=== PATIENT | female | born 1975 | race Hispanic/Latino ===

== ENCOUNTER 2019-10-05 17:40 | Inpatient (IN) | payer SELFPAY ==
--- OUTSIDE RECORDS SUMMARY | 2019-10-05 17:43 | XMS REPORT ---
:1975 Author Organization [facility] Address [address] [place] [address] [address] [place] [address] Care Team Providers Name Role Phone Unavailable Unavailable Unavailable Problems This patient has no known problems. Allergies, Adverse Reactions, Alerts This patient has no known allergies or adverse reactions. Medications This patient has no known medications.
[2019-10-05] MEDS ORDERED: ONDANSETRON 4 MG/2 ML VIAL ONE ×2 (19:52→23:24)
[2019-10-05] MEDS ORDERED: MORPHINE 4 MG/ML SYR ONE ×2 (19:52→23:23)
[2019-10-05] MEDS ORDERED: NA CHLORIDE 0.9% 1,000 ML ONE (19:53)
[2019-10-05 19:58] LABS: Urine Blood NEGATIVE (NEG); Urine Glucose NEGATIVE (NEG); Urine Protein NEGATIVE (NEG); Urine Specific Gravity 1.015 (1.005-1.030); Urine pH 8.5 (5.0-7.0)
[2019-10-05 20:23] LABS: Albumin 3.1 g/dL (3.4-5.0); Bilirubin Direct 0.2 mg/dL (0-0.2); Bilirubin Total 0.6 mg/dL (0.2-1.0); Potassium 3.7 mmol/L (3.5-5.1); Protein, Total 7.3 g/dL (6.4-8.2)
[2019-10-05 20:40] LABS: Absolute Lymphocytes (CBC) 1.2 K/uL (0.7-4.9); Basophils % 0.6 % (0-1.3); Lymphocytes % 10.6 % (15.3-44.8); MPV 8.7 fL (7.6-11.3); RBC Red Blood Cell Count 3.33 M/uL (3.86-4.86)
[2019-10-05 20:42] LABS: Hematocrit 20.1 % (36.0-45.0)
[2019-10-05 21:02] LABS: Anisocytosis 1+; Blood Morphology Comment NOTED (NOT SEEN); Hypochromasia 3+; Platelet Estimate ADEQ; Platelets, Giant NOTED; Polychromasia 1+; Urine White Blood Cell Casts OK
--- NOTE | 2019-10-05 21:09 | RAD REPORT ---
EXAM DESCRIPTION: CT - Abdomen Pelvis W Contrast - 10/05/2019 8:56 pm CLINICAL HISTORY: lower abdominal pain COMPARISON: No comparisons TECHNIQUE: Biphasic, helical CT imaging of the abdomen and pelvis was performed following 100 ml non -ionic IV contrast. No oral contrast. All CT scans are performed using dose optimization technique as appropriate and may include automated exposure control or mA/KV adjustment according to patient size. FINDINGS: No suspicious findings in the lung bases. The liver, spleen, and pancreas show no suspicious findings. Gallstones are present. No wall thickeni ng or pericholecystic fluid. Active gallbladder process is doubtful. No biliary tree dilatation. Symmetric renal function is seen with no hydronephrosis or suspicious renal mass. No pyelonephritis o r acute parenchymal process. Mostly contracted urinary bladder shows no suspicious finding. No adrena l abnormalities. Uterine size is normal range for patient age. There is heterogeneity in the myometri um consistent with multiple small uterine fibroids. No discrete finding within the endometrial cavity . Small cysts are identified in both ovaries up to 18 mm in size. There is a mild congestion or stran ding appearance to the fatty tissues of the anterior lower pelvis. No fallopian tube dilatation. No dilated bowel loops or bowel wall thickening. Appendectomy clips are present at the tip of the cec um. Patient has minimal diverticulosis. No free air, free fluid or pneumatosis. No hernia, mass or b ulky lymphadenopathy. No suspicious bony findings. IMPRESSION: No bowel obstruction, free air or surgically emergent finding. Patient has a mild congested or edematous appearance to the fat of the lower pelvis. This is nonspeci fic. No associated GI or CORPORATE AIRCRAFT MECHANIC process. Small ovarian cysts are present. No fallopian tube dilatation. Uterus contains multiple fibroids but no acute CORPORATE AIRCRAFT MECHANIC process confirmed.
[2019-10-05 21:41] LABS: Protime INR 1.26
[2019-10-05] MEDS ORDERED: CIPROFLOXACIN 400mg IV 400 MG/200 ML BAG IV ONE (21:44)
--- NOTE | 2019-10-05 21:59 | ER ---
Nurse's Notes [facility] Name: Abida Shoemaker Age: 43 yrs Sex: Female : 1975 Arrival Date: 10/05/2019 Time: 17:44 Bed 13 Private MD: None, None Diagnosis: Anemia;Urinary Tract Infection;Abdominal Pain Presentation: 10/05 18:25 Presenting complaint: Patient states: "Since yesterday morning I have been having aj1 excruciating abdominal pain" Reports RLQ and LLQ abdominal pain. States that she gets dizzy in the shower. Reports nausea, vomiting, denies diarrhea. Reports fever of 101.4 todayu. Transition of care: patient was not received from another setting of care. Onset of symptoms was 2019. Risk Assessment: Do you want to hurt yourself or someone else? Patient reports no desire to harm self or others. Initial Sepsis Screen: Does the patient meet any 2 criteria? HR > 90 bpm. No. Patient's initial sepsis screen is negative. Does the patient have a suspected source of infection? Yes: Acute abdominal pain. Care prior to arrival: None. 18:25 Method Of Arrival: Ambulatory aj 18:25 Acuity: NEGRO 3 aj1 Triage Assessment: 18:26 General: Appears in no apparent distress. uncomfortable, Behavior is calm, cooperative, aj1 appropriate for age. Pain: Complains of pain in right lower quadrant and left lower quadrant. Neuro: Level of Consciousness is awake, alert, obeys commands. Cardiovascular: Patient's skin is warm and dry. Respiratory: Airway is patent Respiratory effort is even, unlabored, Respiratory pattern is regular, symmetrical. GI: Reports lower abdominal pain, nausea, vomiting. 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 - Social history:: Smoking status: Patient/guardian denies using tobacco. - Ebola Screening: : Patient denies travel to an Ebola-affected area in the 21 days before illness onset. Screenin/18 00:26 Abuse screen: Denies threats or abuse. Nutritional screening: No deficits noted. vc Tuberculosis screening: No symptoms or risk factors identified. Fall Risk Secondary diagnosis (15 points) anemia. IV access (20 points). Assessment: 10/05 20:30 General: Appears in no apparent distress. uncomfortable, ill. Pain: Complains of pain vc in left lower quadrant and right lower quadrant. Neuro: Level of Consciousness is awake, alert, obeys commands, Oriented to person, place, time. Cardiovascular: Capillary refill < 3 seconds. Respiratory: Airway is patent Respiratory effort is even, unlabored. GI: Abdomen is round non-distended, Reports lower abdominal pain, nausea. : No deficits noted. EENT: No signs and/or symptoms were reported regarding the EENT system. Derm: Skin is intact, Skin is dry, Skin temperature is warm. Musculoskeletal: Range of motion:. 21:00 Reassessment: Patient and/or family updated on plan of care and expected duration. Pain vc level reassessed. 22:00 Reassessment: Patient and/or family updated on plan of care and expected duration. Pain vc level reassessed. Patient states feeling better. 23:15 Reassessment: Patient states she is starting to have abdominal pain, Provider notified, vc verbal orders for 4mg morphine and 4mg zofran received. 23:15 Reassessment: Patient states that the pain is gone. Friend at bedside. vc 10/06 00:00 Reassessment: Patient resting with eyes closed, no complaints at this time. vc Vital Signs: 10/05 18:26 BP 141 / 77; Pulse 99; Resp 18; Temp 98.4; Pulse Ox 100% on R/A; Weight 76.66 kg (R); aj1 Height 5 ft. 0 in. (152.40 cm) (R); Pain 10/10; 20:30 BP 123 / 63; Pulse 94; Resp 16; Pulse Ox 98% on R/A; Pain 6/10; vc 21:30 BP 114 / 59; Pulse 100; Resp 15; Pulse Ox 100% on R/A; vc 22:15 BP 111 / 58; Pulse 92; Resp 18; Pulse Ox 100% on R/A; vc 23:00 BP 118 / 58; Pulse 91; Resp 15; Temp 98.6; Pulse Ox 97% on R/A; vc 23:12 BP 121 / 60 Supine; Pulse 90; vc 23:14 BP 111 / 61 Sitting; vc 23:15 BP 98 / 51 Standing; Pulse 94; vc 10/06 00:00 BP 98 / 44; Pulse 86; Resp 15; Temp 98.6; Pulse Ox 100% on R/A; Pain 0/10; vc 10/05 18:26 Body Mass Index 33.01 (76.66 kg, 152.40 cm) [facility] ED Course: 10/05 17:44 Patient arrived in ED. mr 17:44 None, None is Private Physician. mr 18:26 Triage completed. aj1 18:26 Arm band placed on Patient placed in waiting room, Patient notified of wait time. [facility] 19:23 Chad Vega PA is PHCP. [facility] 19:23 Raúl Faust MD is Attending Physician. jmm 19:55 Inserted saline lock: 20 gauge in right antecubital area, using aseptic technique. wh Blood collected. 20:30 Patient has correct armband on for positive identification. Bed in low position. Call vc light in reach. Side rails up X2. 20:32 Renetta Stokes, RN is Primary Nurse. vc 20:56 CT Abd/Pelvis - IV Contrast Only In Process Unspecified. EDMS 21:57 Davina Berkowitz MD is Hospitalizing Provider. [facility] 10/06 00:25 No provider procedures requiring assistance completed. vc 00:27 Patient admitted, IV remains in place. vc Administered Medications: 10/05 20:32 Drug: Zofran 4 mg Route: IVP; Site: right antecubital; vc 22:11 Follow up: Response: No adverse reaction vc 20:33 Drug: NS 0.9% 1000 ml Route: IV; Rate: 1 bolus; Site: right antecubital; vc 20:33 Drug: morphine 4 mg Route: IVP; Site: right antecubital; vc 22:12 Follow up: Response: No adverse reaction vc 21:45 Drug: Cipro 400 mg Volume: 200 ml; Route: IVPB; Infused Over: 60 mins; Site: right wh antecubital; 23:33 Drug: morphine 4 mg Route: IVP; Site: right antecubital; vc 10/06 00:25 Follow up: Response: No adverse reaction vc 10/05 23:35 Drug: Zofran 4 mg Route: IVP; Site: right antecubital; vc 10/06 00:25 Follow up: Response: No adverse reaction vc Outcome: 10/05 21:58 Decision to Hospitalize by Provider. latosha 10/06 00:50 Admitted to Tele accompanied by tech, with chart. vc 00:50 Condition: stable vc 00:50 Instructed on the need for admit. 00:51 Patient left the ED. vc Signatures: Dispatcher [employer] Jenny Harris, RN RN aj1 Chad Vega PA PA Lyndsey Matthews mr [place], Renetta Ocampo RN RN vc
--- NOTE | 2019-10-05 21:59 | EDPHYS ---
Physician Documentation [facility] Name: Abida Shoemaker Age: 43 yrs Sex: Female : 1975 Arrival Date: 10/05/2019 Time: 17:44 Bed 13 Private MD: None, None ED Physician Raúl Faust HPI: 10/05 19:45 This 43 yrs old Female presents to ER via Ambulatory with complaints of jmm Abdominal Pain. 19:45 The patient presents with abdominal pain. Onset: The symptoms/episode began/occurred jmm gradually, 1 day(s) ago. The symptoms do not radiate. Associated signs and symptoms:. The symptoms are described as achy, sharp. Modifying factors: The symptoms are alleviated by nothing, the symptoms are aggravated by movement. This is a 43 year old male with a history of htn that presents to the ED with complaints of lower abdominal pain beginning yesterday. Patient states the pain radiates up her abdomen. . 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 - Social history:: Smoking status: Patient/guardian denies using tobacco. - Ebola Screening: : Patient denies travel to an Ebola-affected area in the 21 days before illness onset. ROS: 19:45 Constitutional: Negative for fever, chills, and weight loss, Cardiovascular: Negative jmm for chest pain, palpitations, and edema, Respiratory: Negative for shortness of breath, cough, wheezing, and pleuritic chest pain. 19:45 Abdomen/GI: Positive for abdominal pain. 19:45 All other systems are negative. Exam: 19:45 Constitutional: This is a well developed, well nourished patient who is awake, alert, jmm and in no acute distress. Head/Face: atraumatic. Eyes: EOMI, no conjunctival erythema appreciated ENT: Moist Mucus Membranes Neck: Trachea midline, Supple Chest/axilla: Normal chest wall appearance and motion. Cardiovascular: Regular rate and rhythm. No edema appreciated Respiratory: Normal respirations, no respiratory distress appreciated 19:45 Abdomen/GI: Inspection: abdomen appears normal, Bowel sounds: normal, Palpation: soft, moderate abdominal tenderness, in the right upper quadrant. 19:45 Musculoskeletal/extremity: ROM: intact in all extremities, full active range of motion. 19:45 Skin: Appearance: Color: normal in color. 19:45 Neuro: Orientation: is normal, Mentation: is normal, Memory: is normal. 19:45 Psych: Behavior/mood is pleasant, cooperative. Vital Signs: 18:26 BP 141 / 77; Pulse 99; Resp 18; Temp 98.4; Pulse Ox 100% on R/A; Weight 76.66 kg (R); aj1 Height 5 ft. 0 in. (152.40 cm) (R); Pain 10/10; 20:30 BP 123 / 63; Pulse 94; Resp 16; Pulse Ox 98% on R/A; Pain 6/10; vc 21:30 BP 114 / 59; Pulse 100; Resp 15; Pulse Ox 100% on R/A; vc 22:15 BP 111 / 58; Pulse 92; Resp 18; Pulse Ox 100% on R/A; vc 23:00 BP 118 / 58; Pulse 91; Resp 15; Temp 98.6; Pulse Ox 97% on R/A; vc 23:12 BP 121 / 60 Supine; Pulse 90; vc 23:14 BP 111 / 61 Sitting; vc 23:15 BP 98 / 51 Standing; Pulse 94; vc 10/06 00:00 BP 98 / 44; Pulse 86; Resp 15; Temp 98.6; Pulse Ox 100% on R/A; Pain 0/10; vc 10/05 18:26 Body Mass Index 33.01 (76.66 kg, 152.40 cm) aj MDM: 10/05 19:27 Patient medically screened. jordan 21:56 Data reviewed: vital signs, nurses notes. Counseling: I had a detailed discussion with latosha the patient and/or guardian regarding: the historical points, exam findings, and any diagnostic results supporting the discharge/admit diagnosis, lab results, the need for further work-up and treatment in the hospital. ED course: I discussed the patient with Dr. Berkowitz whom accepted admission. Will admit for IVF, abdominal pain, UTI . 10/05 19:40 Order name: Basic Metabolic Panel; Complete Time: 20:26 [facility] 10/05 19:40 Order name: CBC with Diff; Complete Time: 21:06 [facility] 10/05 19:40 Order name: Creatinine for Radiology; Complete Time: 20:26 [facility] 10/05 19:40 Order name: Hepatic Function; Complete Time: 20:26 [facility] 10/05 19:40 Order name: Lipase; Complete Time: 20:26 [facility] 10/05 19:53 Order name: Urine Dipstick--Ancillary (enter results); Complete Time: 19:59 10/05 19:53 Order name: Urine --Ancillary (enter results); Complete Time: 19:59 10/05 20:43 Order name: CBC Smear Scan; Complete Time: 21:06 [facility] 10/05 20:48 Order name: PT-INR; Complete Time: 21:49 [facility] 10/05 20:50 Order name: Type And Screen lp1 10/05 22:05 Order name: ABO/RH no charge; Complete Time: 22:36 [facility] 10/05 19:40 Order name: CT Abd/Pelvis - IV Contrast Only; Complete Time: 21:17 [facility] 10/05 22:29 Order name: Packed RBC Leukored [facility] 10/05 22:53 Order name: Comprehensive Metabolic Panel [facility] 10/05 22:53 Order name: Comprehensive Metabolic Panel [facility] 10/05 22:53 Order name: Protime (+INR) [facility] 10/05 22:53 Order name: Protime (+INR) [facility] 10/05 22:54 Order name: CBC with Automated Diff [facility] 10/05 22:54 Order name: CBC with Automated Diff [facility] 10/05 22:54 Order name: PTT, Activated Partial Thromb [facility] 10/05 22:54 Order name: PTT, Activated Partial Thromb [facility] 10/05 19:40 Order name: IV Saline Lock; Complete Time: 21:34 [facility] 10/05 19:40 Order name: Labs collected and sent; Complete Time: 21:34 [facility] 10/05 19:40 Order name: Urine Dipstick-Ancillary (obtain specimen); Complete Time: 19:52 [facility] 10/05 19:40 Order name: Urine Test (obtain specimen); Complete Time: 19:52 [facility] 10/05 21:19 Order name: Orthostatics; Complete Time: 23:32 [facility] 10/05 22:54 Order name: CONS Pharmacy Consult [facility] 10/05 22:54 Order name: Regular EDRI Administered Medications: 20:32 Drug: Zofran 4 mg Route: IVP; Site: right antecubital; vc 22:11 Follow up: Response: No adverse reaction vc 20:33 Drug: NS 0.9% 1000 ml Route: IV; Rate: 1 bolus; Site: right antecubital; vc 20:33 Drug: morphine 4 mg Route: IVP; Site: right antecubital; vc 22:12 Follow up: Response: No adverse reaction vc 21:45 Drug: Cipro 400 mg Volume: 200 ml; Route: IVPB; Infused Over: 60 mins; Site: right wh antecubital; 23:33 Drug: morphine 4 mg Route: IVP; Site: right antecubital; vc 10/06 00:25 Follow up: Response: No adverse reaction vc 10/05 23:35 Drug: Zofran 4 mg Route: IVP; Site: right antecubital; vc 10/06 00:25 Follow up: Response: No adverse reaction vc Disposition: 10/05/19 21:58 Hospitalization ordered by Davina Berkowitz for Observation. Preliminary diagnosis are Anemia, Urinary Tract Infection, Abdominal Pain. - Bed requested for Telemetry/MedSurg (observation). - Status is Observation. vc - Condition is Stable. - Problem is new. - Symptoms are unchanged. UTI on Admission? Yes Addendum: 10/07/2019 10:04 Co-signature as Attending Physician, Raúl Faust MD I agree with the assessment and c calzada plan of care. Signatures: Dispatcher [employer] [facility] Jenny Gonzalez, RN RN aj1 Raúl Faust MD MD cha Mickail, Joel, PA PA [facility] Rosa King RN RN tl1 Edy Haynes Vanessa, RN RN vc Corrections: (The following items were deleted from the chart) 10/05 22:28 21:52 PACKED RBC LEUKORED -1+BB.LAB.BRZ ordered. [facility] 22:28 21:52 ABO/RH typing ordered. [facility] EDRI 22:28 21:52 Antibody Screen ordered. [facility] 23:57 21:58 Hospitalization Ordered by Davina Berkowitz MD for Observation. Preliminary tl1 diagnosis is Anemia; Urinary Tract Infection; Abdominal Pain. Bed requested for Telemetry/MedSurg (observation). Status is Observation. Condition is Stable. Problem is new. Symptoms are unchanged. UTI on Admission? Yes. jane 10/06 00:51 10/05 23:57 10/05/2019 21:58 Hospitalization Ordered by Davina Berkowitz MD for vc Observation. Preliminary diagnosis is Anemia; Urinary Tract Infection; Abdominal Pain. Bed requested for Telemetry/MedSurg (observation). Status is Observation. Condition is Stable. Problem is new. Symptoms are unchanged. UTI on Admission? Yes. tl1
[2019-10-05] MEDS ORDERED: ONDANSETRON 4 MG/2 ML VIAL IV PRN (22:51)
[2019-10-05] MEDS ORDERED: ACETAMINOPHEN 500 MG TAB PO PRN (22:51)
[2019-10-06] MEDS ORDERED: NA CHLORIDE 0.9% 250 ML ONE ×2 (01:03→04:04)
[2019-10-06 01:07] VITALS: BMI 33.0
[2019-10-06] MEDS ORDERED: MORPHINE 2 MG/ML SYR IV ONE (02:04)
--- NOTE | 2019-10-06 03:54 | P.HP ---
Certification for Inpatient Patient admitted to: Observation With expected LOS: <2 Midnights Patient will require the following post-hospital care: None Practitioner: I am a practitioner with admitting privileges, knowledge of patient current condition, hospital course, and medical plan of care. Services: Services provided to patient in accordance with Admission requirements found in Title 42 Section 412.3 of the Code of Federal Regulations Patient History Date of Service: 10/05/19 Reason for admission: Menorrhagia/severe anemia History of Present Illness: Patient is a 43-year-old female came to the hospital with lightheadedness. She has also been having some abdominal discomfort. This is improved though she still a little nauseated. She did vomit 3 days ago. She just has not been feeling like herself so she came into the ER for further evaluation. In the emergency room, patient was found have a hemoglobin of 5.4. Patient states she has heavy periods. She has needed a blood transfusion in the recent past. She also required blood transfusion after her last . Patient will be admitted to the hospital for further evaluation. Patient will need outpatient follow-up with OBGYN. Patient may need medication of surgical intervention to alleviate her heavy periods. Patient's CT scan also revealed multiple fibroids. Patient will need to follow up as well. Allergies meperidine HCl [From Demerol] Allergy (Verified 10/06/19 01:19) Unknown PENICILLINS Allergy (Uncoded 10/06/19 01:19) Rash Home Medications: NK [No Home Meds] 10/06/19 - Past Medical/Surgical History Diabetic: No -: HTN -: anemia -: appy -: tumor removal from neck and arms - Family History Father Medical History: Heart disease, Hypertension, Lung disease, GI disease, Cancer, Liver disease Mother Medical History: Heart disease, Hypertension, Diabetes, Stroke - Social History Smoking Status: Never smoker Alcohol use: Yes CD- Drugs: No Caffeine use: Yes Place of Residence: Home Review of Systems 10-point ROS is otherwise unremarkable Physical Examination - Vital Signs Temperature: 98 F Blood Pressure: 103/50 Pulse: 88 Respirations: 18 Pulse Ox (%): 100 - Physical Exam General: Alert, In no apparent distress, Oriented x3 HEENT: Atraumatic, PERRLA, Mucous membr. moist/pink, EOMI, Sclerae nonicteric Neck: Supple, 2+ carotid pulse no bruit, No LAD, Without JVD or thyroid abnormality Respiratory: Clear to auscultation bilaterally, Normal air movement Cardiovascular: Regular rate/rhythm, Normal S1 S2, No murmurs Gastrointestinal: Normal bowel sounds, Soft and benign, Non-distended, No tenderness, No rebound, No guarding Musculoskeletal: No clubbing, No swelling, No tenderness Integumentary: No rashes Neurological: Normal gait, Normal speech, Normal strength at 5/5 x4 extr, Normal tone, Sensation intact, Cranial nerves 3-12 intact, Normal affect Lymphatics: No axilla or inguinal lymphadenopathy - Studies Laboratory Data (last 24 hrs) 10/05/19 21:15: PT 14.7 H, INR 1.26 10/05/19 20:30: WBC 11.2 H, Hgb 5.4 L*, Hct 20.1 L*, Plt Count 365 10/05/19 19:50: Creatinine 0.81 10/05/19 19:50: Sodium 136, Potassium 3.7, BUN 9, Creatinine 0.81, Glucose 90, Total Bilirubin 0.6, AST 13 L, ALT 21, Alkaline Phosphatase 133 H, Lipase 36 L Assessment & Plan - Problems (Diagnosis) (1) Menorrhagia Current Visit: Yes Status: Acute (2) Acute blood loss anemia Current Visit: Yes Status: Acute (3) Abdominal pain Current Visit: Yes Status: Acute (4) Nausea Current Visit: Yes Status: Acute - Plan Plan: 1. Transfuse 2 units of packed red blood cells 2. Anemia workup 3. 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 Discuss with imaging clerk regarding Depo-Provera shot prior to discharge 5. Repeat H&H after transfusion 6. Possible discharge home in the morning after blood transfusion completed as long as patient is not having any further bleeding 7. GI and DVT prophylaxis Discharge Plan: Home Plan to discharge in: 48 Hours - Advance Directives Does patient have a Living Will: No Does patient have a Durable POA for Healthcare: No - Code Status/Comfort Care Code Status Assessed: Yes Code Status: Full Code Critical Care: No Time Spent Managing PTS Care (In Minutes): 45
[2019-10-06 06:10] LABS: Urine Appearance CLOUDY; Urine Bilirubin NEGATIVE (NEG); Urine Blood NEGATIVE (NEG); Urine Color YELLOW; Urine Glucose NEGATIVE (NEG); Urine Protein NEGATIVE (NEG); Urine Specific Gravity 1.025 (1.005-1.030)
[2019-10-06 06:54] LABS: Urine Bacteria <20 /HPF (<20); Urine Culture Reflex Order REFLEXED; Urine RBC <5 /HPF (NONE SEEN)
[2019-10-06] MEDS: MORPHINE 2 MG/ML SYR IV PRN ×4 (07:27→20:13)
[2019-10-06] MEDS: NA CHLORIDE 0.9% 1,000 ML IV SCH ×3 (07:29→20:19)
[2019-10-06 08:59] LABS: Basophils % 0.6 % (0-1.3); Hematocrit 25.3 % (36.0-45.0); Lymphocytes % 10.2 % (15.3-44.8); MPV 8.7 fL (7.6-11.3); RBC Red Blood Cell Count 3.85 M/uL (3.86-4.86)
[2019-10-06 09:01] LABS: RBC Red Blood Cell Count 3.87 M/uL (3.86-4.86)
[2019-10-06 09:08] LABS: ALT/SGPT 22 U/L (12-78); AST/SGOT 20 U/L (15-37); Albumin 2.6 g/dL (3.4-5.0); Alkaline Phosphatase 137 U/L (45-117); BUN Blood Urea Nitrogen 7 mg/dL (7-18); Bicarbonate 24 mmol/L (21-32); Bilirubin Total 0.9 mg/dL (0.2-1.0); Glucose Level 97 mg/dL (74-106); Potassium 3.9 mmol/L (3.5-5.1); Protein, Total 6.6 g/dL (6.4-8.2); Sodium Level 139 mmol/L (136-145)
[2019-10-06 09:10] LABS: Protime INR 1.21
[2019-10-06 09:30] LABS: Ferritin 13.2 ng/mL (8-388); Folic Acid, (Folate) 5.6 ng/mL (3.1-17.5)
[2019-10-06 09:34] LABS: Hematocrit 25.9 % (36.0-45.0)
[2019-10-06] MEDS ORDERED: NA CHLORIDE 0.9% 100 ML ONE (10:37)
--- NOTE | 2019-10-06 13:51 | P.PN ---
Subjective Date of Service: 10/06/19 Chief Complaint: Menorrhagia/severe anemia Denies active bleeding. LMP 09/25/19. Patient with c/o severe lower abd pain, dysuria. Also constipation, last BM > 4days. Physical Examination - Vital Signs Temperature: 97.6 F Blood Pressure: 107/57 Pulse: 65 Respirations: 18 Pulse Ox (%): 96 - Physical Exam General: Alert, In no apparent distress HEENT: Atraumatic, PERRLA, EOMI Neck: Supple, JVD not distended Respiratory: Clear to auscultation bilaterally, Normal air movement Cardiovascular: Regular rate/rhythm, Normal S1 S2 Gastrointestinal: Hypoactive, Tenderness Musculoskeletal: No tenderness Integumentary: Other (pale) Neurological: Normal speech, Normal tone, Normal affect Lymphatics: No axilla or inguinal lymphadenopathy - Studies Laboratory Data (last 24 hrs) 10/05/19 21:15: PT 14.7 H, INR 1.26 10/05/19 20:30: WBC 11.2 H, Hgb 5.4 L*, Hct 20.1 L*, Plt Count 365 10/05/19 19:50: Creatinine 0.81 10/05/19 19:50: Sodium 136, Potassium 3.7, BUN 9, Creatinine 0.81, Glucose 90, Total Bilirubin 0.6, AST 13 L, ALT 21, Alkaline Phosphatase 133 H, Lipase 36 L Assessment And Plan - Plan Acute on chronic blood loss anemia-suspect 2/[address] abdomen. H& H is responding appropriately to prbc transfusion -no overt bleeding. 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 multifactorial. constipation vs cystitis. associated with nausea - laxatives & antiemetics -pain control # UTI- UA strongly positive. await urine culture. -Ceftriaxone -monitor VS DVT ppx- SCD Patient is full code Dispo- possible dc in a.m pending cultures.
[2019-10-06] MEDS ORDERED: LACTULOSE 20 GM/30 ML UCUP PO ONE (14:00)
[2019-10-06] MEDS: CEFTRIAXONE/SWI 1gm 1 GM/10 ML SYR IVP SCH (14:40)
[2019-10-06] MEDS: DOCUSATE NA 100 MG CAP PO SCH ×2 (14:40→20:13)
[2019-10-06 17:23] LABS: Hematocrit 28.5 % (36.0-45.0)
[2019-10-07 01:06] VITALS: O2SAT 100
[2019-10-07] MEDS: NA CHLORIDE 0.9% 1,000 ML IV SCH (01:40)
[2019-10-07] MEDS: MORPHINE 2 MG/ML SYR IV PRN ×2 (03:36→07:51)
[2019-10-07] MEDS: DOCUSATE NA 100 MG CAP PO SCH (07:53)
[2019-10-07] MEDS: CEFTRIAXONE/SWI 1gm 1 GM/10 ML SYR IVP SCH (07:53)
--- NOTE | 2019-10-07 10:31 | P.DS ---
Admission Date: 10/06/19 Discharge Date: 10/07/19 Primary Care Provider: none Disposition: ROUTINE DISCHARGE Discharge Condition: GOOD Reason for Admission: Menorrhagia/severe anemia Consultations: none Procedures: CT Ab/Pelvis: COMPARISON: No comparisons TECHNIQUE: Biphasic, helical CT imaging of the abdomen and pelvis was performed following 100 ml non-ionic IV contrast. No oral contrast. All CT scans are performed using dose optimization technique as appropriate and may include automated exposure control or mA/KV adjustment according to patient size. FINDINGS: No suspicious findings in the lung bases. The liver, spleen, and pancreas show no suspicious findings. Gallstones are present. No wall thickening or pericholecystic fluid. Active gallbladder process is doubtful. No biliary tree dilatation. Symmetric renal function is seen with no hydronephrosis or suspicious renal mass. No pyelonephritis or acute parenchymal process. Mostly contracted urinary bladder shows no suspicious finding. No adrenal abnormalities. Uterine size is normal range for patient age. There is heterogeneity in the myometrium consistent with multiple small uterine fibroids. No discrete finding within the endometrial cavity. Small cysts are identified in both ovaries up to 18 mm in size. There is a mild congestion or stranding appearance to the fatty tissues of the anterior lower pelvis. No fallopian tube dilatation. No dilated bowel loops or bowel wall thickening. Appendectomy clips are present at the tip of the cecum. Patient has minimal diverticulosis. No free air, free fluid or pneumatosis. No hernia, mass or bulky lymphadenopathy. No suspicious bony findings. IMPRESSION: No bowel obstruction, free air or surgically emergent finding. Patient has a mild congested or edematous appearance to the fat of the lower pelvis. This is nonspecific. Suspect multiple small uterine fibroids. Small ovarian cysts are present. No fallopian tube dilatation. Uterus contains multiple fibroids but no acute RAVELER process confirmed. Medical problem list: Acute on chronic anemia secondary to multiple fibroids with history of menorrhalgia Chronic constipation Brief History of Present Illness: 43-year-old female presented to the emergency room with lightheadedness. Patient also reports abdominal discomfort with menorrhalgia. Patient has not seen gynecology. Patient had CT scan showing uterine fibroids. Patient was also severely anemic. Patient was admitted for further evaluation and treatment. Hospital Course: Patient presented with lightheadedness and abdominal discomfort. Patient found to be severely anemic with a hemoglobin of 5.4. Uterine fibroids noted on CT scan. Patient with history of menorrhalgia. Patient was given transfusion with improvement of hemoglobin at 8.3. At discharge hemoglobin stable. Will recommend follow up with PCP to establish care and with gynecology to further evaluate her menorrhalgia and uterine fibroids. Patient may require control medication the near future to help with this. Other possible intervention includes uterine ablation versus hysterectomy. Patient should follow up with gynecology soon to further evaluate. Patient will likely require vaginal ultrasound to further address. At discharge patient may continue with multi vitamin daily, iron 325 mg twice daily and vitamin-B 12 daily. Recommend to recheck lab-CBC in 2-4 weeks to monitor her progress. Patient will be given a limited supply of pain medication-tramadol 50 mg 1 pill twice a day as needed for pain. Patient with chronic constipation. Will recommend to continue with stool softener daily. Vital Signs/Physical Exam: Temp Pulse Resp BP Pulse Ox 97.0 F 51 15 139/68 100 10/07/19 08:00 10/07/19 08:00 10/07/19 08:00 10/07/19 08:00 10/07/19 08:00 General: Alert, In no apparent distress, Oriented x3, Cooperative HEENT: Atraumatic Neck: Supple Respiratory: Clear to auscultation bilaterally, Normal air movement Cardiovascular: Normal pulses, Regular rate/rhythm Gastrointestinal: Normal bowel sounds, Soft and benign, Non-distended, No tenderness, No masses, No rebound, No guarding Musculoskeletal: No erythema, No tenderness, No warmth Neurological: Normal speech, Normal strength at 5/5 x4 extr, Normal tone, Normal affect Laboratory Data at Discharge: WBC 9.5 K/uL (4.3-10.9) D 10/06/19 08:40 Hgb 8.3 g/dL (12.0-15.0) L 10/06/19 16:33 Hct 28.5 % (36.0-45.0) L 10/06/19 16:33 Plt Count 335 K/uL (152-406) 10/06/19 08:40 PT 14.2 SECONDS (9.5-12.5) H 10/06/19 08:40 INR 1.21 10/06/19 08:40 APTT 32.0 SECONDS (24.3-36.9) 10/06/19 08:40 Sodium 139 mmol/L (136-145) 10/06/19 08:40 Potassium 3.9 mmol/L (3.5-5.1) 10/06/19 08:40 BUN 7 mg/dL (7-18) 10/06/19 08:40 Creatinine 0.59 mg/dL (0.55-1.3) 10/06/19 08:40 Glucose 97 mg/dL (74-106) 10/06/19 08:40 Total Bilirubin 0.9 mg/dL (0.2-1.0) 10/06/19 08:40 AST 20 U/L (15-37) 10/06/19 08:40 ALT 22 U/L (12-78) 10/06/19 08:40 Alkaline Phosphatase 137 U/L (45-117) H 10/06/19 08:40 Lipase 36 U/L (73-393) L 10/05/19 19:50 Home Medications: Cyanocobalamin (Vitamin B-12) [Vitamin B-12] 1,000 mcg PO DAILY #90 tablet 10/07 Docusate [Colace Cap*] 100 mg PO DAILY #30 cap 10/07/19 Ferrous Sulfate [Iron] 325 mg PO BID #60 tablet 10/07/19 Multivit with Calcium,Iron,Min [Multiple Vitamins For Women] 1 each PO DAILY # 90 tablet 10/07/19 Tramadol HCl [Ultram] 50 mg PO BID PRN #10 tablet 10/07/19 New Medications: Cyanocobalamin (Vitamin B-12) [Vitamin B-12] 1,000 mcg PO DAILY #90 tablet Docusate [Colace Cap*] 100 mg PO DAILY #30 cap Ferrous Sulfate [Iron] 325 mg PO BID #60 tablet Multivit with Calcium,Iron,Min [Multiple Vitamins For Women] 1 each PO DAILY # 90 tablet Tramadol HCl [Ultram] 50 mg PO BID PRN #10 tablet PRN Reason: Pain Scale 2-4 (Mild) Patient Discharge Instructions: 1. Patient will need to establish care with a PCP to follow up this hospitalization. 2. Patient presented with lightheadedness and abdominal discomfort. Patient found to be severely anemic with a hemoglobin of 5.4. Uterine fibroids noted on CT scan. Patient with history of menorrhalgia. Patient was given transfusion with improvement of hemoglobin at 8.3. At discharge hemoglobin stable. Will recommend follow up with PCP to establish care and with gynecology to further evaluate her menorrhalgia and uterine fibroids. Patient may require control medication the near future to help with this. Other possible intervention includes uterine ablation versus hysterectomy. Patient should follow up with gynecology soon to further evaluate. Patient will likely require vaginal ultrasound to further address. At discharge patient may continue with multi vitamin daily, iron 325 mg twice daily and vitamin-B 12 daily. Recommend to recheck lab-CBC in 2-4 weeks to monitor her progress. Patient will be given a limited supply of pain medication-tramadol 50 mg 1 pill twice a day as needed for pain. 3. Patient with chronic constipation. Will recommend to continue with stool softener daily. Diet: AHA Activity: Ad bridget Time spent managing pt's care (in minutes): 55
[2019-10-07 12:25] VITALS: BP 139/72; TEMP 97.3
== END 2019-10-07 11:55 | disposition home or self-care (01) | DRG 812 ==
LOC: ER 17:40 → ERHOLD 22:51 → 4TH 10-06 00:20 → OBSVTOIN 10-06 20:16
PROVIDERS: ADMIT Hospitalist; ATTEND Hospitalist
PROC: 30233N1 Transfusion of Nonautologous Red Blood Cells into Peripheral Vein, Percutaneous Approach (ICD-10-PCS; principal; 2019-10-06)
DX: D64.9 Anemia, unspecified (principal); N39.0 Urinary tract infection, site not specified; D25.9 Leiomyoma of uterus, unspecified; N92.0 Excessive and frequent menstruation with regular cycle; K59.09 Other constipation; Z88.0 Allergy status to penicillin
CPT/HCPCS: 36415; 74177; 80048; 80053; 80076; 81001; 81003; 81025; 82607; 82728; 82746; 83540; 83615; 83690; 85014; 85018; 85025; 85044; 85610; 85730; 86850; 86900; 86901; 87086; 87088; 96374; 96375; 99285; G0378; J0696; J0744; J2270; J2405; J7030; P9016; Q9967

== ENCOUNTER 2022-07-29 16:26 | Inpatient (IN) | payer SELFPAY ==
--- OUTSIDE RECORDS SUMMARY | 2022-07-29 16:29 | XMS REPORT | Continuity of Care Document ---
:[address] [facility] t Address [address] [place] [address] [address] [place] [address] Care Team Providers Name Role Phone ROSSANA SIMON Attending Clinician Unavailable JAUNY BASHIR Attending Clinician Unavailable CAROLYN RUBIN Attending Clinician Unavailable Payers Payer Name Policy Type Policy Number Effective Date Expiration Date Jesica self [id number] 2020 00:00:00 Problems This patient has no known problems. Allergies, Adverse Reactions, Alerts Allergy Allergy Status Severity Reaction(s) Onset Inactive Treating Comm ents Source Name Type Date Date Clinician [facility] Active Rash 2019-0 [facility] [place] [facility] 11-09 ity of 00:00: [address] [facility] Active Rash 2019-0 [facility]I 11-09 ity of 00:00: [address] Medications This patient has no known medications. Procedures This patient has no known procedures. Encounters Start End Encounter Admission Attending Care Care Encounter Source Date/Time Date/Time Type Type Clinicians Facility Department ID 2020-05-27 2020-05-27 Outpatient R AURORA [facility] [id number] [facility] 13:15:00 13:15:00 ROSSANA butcher o f [facility] 2020-04-08 2020-04-08 Outpatient R KRYSTEN [facility] [id number] [facility] 13:00:00 13:00:00 JUANY ity [facility] 2020-03-07 2020-03-07 Outpatient R [facility] [id number] [facility] 09:30:00 09:30:00 ity [facility] 2020-02-20 2020-02-20 Outpatient R CARYN [facility] [id number] [facility] 13:30:00 13:30:00 CAROLYN delacruz [facility] Results This patient has no known results.
[2022-07-29] MEDS ORDERED: NA CHLORIDE 0.9% 1,000 ML ONE ×2 (17:36→20:11)
[2022-07-29] MEDS ORDERED: ONDANSETRON 4 MG/2 ML VIAL ONE ×2 (17:36→21:55)
[2022-07-29 17:43] LABS: Absolute Lymphocytes (CBC) 0.4 K/uL (0.7-4.9); Hematocrit 22.8 % (36.0-45.0); Lymphocytes % 1.7 % (15.3-44.8); MCV 61.6 fL (80-100); MPV 8.5 fL (7.6-11.3); RBC Red Blood Cell Count 3.69 M/uL (3.86-4.86)
[2022-07-29 17:45] LABS: Albumin 2.5 g/dL (3.4-5.0); Bilirubin Total 0.5 mg/dL (0.2-1.0); Protein, Total 7.3 g/dL (6.4-8.2)
[2022-07-29] MEDS ORDERED: OSELTAMIVIR 75 MG CAP ONE (18:43)
--- NOTE | 2022-07-29 18:49 | RAD REPORT ---
EXAM DESCRIPTION: CTAbdomen Pelvis Wo Contrast - 07/29/2022 6:37 pm CLINICAL HISTORY: LLQ abdominal pain COMPARISON: Abdomen Pelvis W Contrast dated 10/05/2019 TECHNIQUE: CT of the abdomen and pelvis was performed. All CT scans are performed using dose optimization technique as appropriate and may include automated exposure control or mA/KV adjustment according to patient size. FINDINGS: Lower chest: No acute abnormality. Liver: Hepatic steatosis. Biliary: No biliary ductal dilatation. Stomach: No significant focal abnormality. Duodenum: No significant focal abnormality. Pancreas: No significant abnormality. Spleen: No significant abnormality. Adrenal: No suspicious lesions. Kidney/ureter: Mild left-sided hydronephrosis. Left-sided perinephric stranding. Retroperitoneum: No retroperitoneal adenopathy. Vascular: No aneurysm. Bowel: No significant focal abnormality. Appendectomy. Peritoneum: No ascites or free air. Bladder: Grossly unremarkable. Reproductive: No adnexal masses. Bones: No acute fracture. Other: n/a IMPRESSION: Mild left-sided hydronephrosis and perinephric stranding which could represent either py elonephritis or recently passed stone. No renal or ureteral calculi identified.
[2022-07-29 19:20] LABS: Urine Blood 2+ (Negative); Urine Glucose Negative (Negative); Urine Protein 3+ (Negative); Urine Specific Gravity 1.025 (1.005-1.030); Urine pH 5.5 (5.0-7.0)
--- NOTE | 2022-07-29 19:20 | EDPHYS ---
Physician Documentation [facility] Name: Abida Shoemaker Age: 46 yrs Sex: Female : 1975 Arrival Date: 07/29/2022 Time: 16:33 Bed 4 Private MD: ED Physician Willis Otero HPI: 07/29 17:07 This 46 yrs old Female presents to ER via Wheelchair with complaints of pm1 Abdominal Pain, Back Pain, Nausea, Vomiting, Swelling of Extremities. 17:07 The patient presents with abdominal pain in the left lower quadrant, left flank pain. pm1 Onset: The symptoms/episode began/occurred 5 day(s) ago. The symptoms do not radiate. Associated signs and symptoms: Pertinent positives: nausea and vomiting, extremity swelling. The symptoms are described as bloated and cramping. Modifying factors: The symptoms are alleviated by nothing, the symptoms are aggravated by nothing. Severity of pain: in the emergency department the pain is actually worse. The patient has experienced similar episodes in the past, a few times. The patient has not recently seen a physician. Patient with irregular and heavy menses requiring blood transfusions in the past . 17:07 Last menses lasted from June 20 to July 08. 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 - Social history:: Smoking status: Patient denies any tobacco usage or history of. ROS: 17:07 Eyes: Negative for injury, pain, redness, and discharge, ENT: Negative for injury, pm1 pain, and discharge, Cardiovascular: Negative for chest pain, palpitations, and edema, Respiratory: Negative for shortness of breath, cough, wheezing, and pleuritic chest pain. 17:07 : Negative for injury, bleeding, discharge, and swelling, MS/Extremity: Negative for injury and deformity, Skin: Negative for injury, rash, and discoloration, Neuro: Negative for headache, weakness, numbness, tingling, and seizure. 17:07 Constitutional: Positive for body aches, fatigue, poor PO intake. 17:07 Abdomen/GI: Positive for abdominal pain, nausea, vomiting, and diarrhea, of the left lower quadrant. 17:07 Back: Positive for flank pain, on the left. 17:07 All other systems are negative. Exam: 17:07 Constitutional: This is a well developed, well nourished patient who is awake, alert, pm1 and in no acute distress. Head/Face: Normocephalic, atraumatic. 17:07 Skin: Warm, dry with normal turgor. Normal color with no rashes, no lesions, and no evidence of cellulitis. MS/ Extremity: Pulses equal, no cyanosis. Neurovascular intact. Full, normal range of motion. 17:07 Eyes: Periorbital structures: no acute changes, Pupils: no acute changes, Extraocular movements: no acute changes, Conjunctiva: pale, bilaterally. 17:07 ENT: Mouth: Lips: normal, moist, Oral mucosa: normal, pink and intact, moist. 17:07 Cardiovascular: Exam negative for acute changes, Rate: normal, Rhythm: regular, Pulses: no pulse deficits are appreciated. 17:07 Respiratory: Exam negative for acute changes, respiratory distress, shortness of breath, Breath sounds: are clear throughout. 17:07 Abdomen/GI: Inspection: abdomen appears normal, Palpation: soft, in all quadrants, mild abdominal tenderness, in the suprapubic area and left lower quadrant. 17:07 Back: pain, that is mild, of the left low back, vertebral tenderness, is not appreciated. 17:07 Neuro: Exam negative for acute changes, Orientation: is normal, Mentation: is normal, Motor: is normal, moves all fours. Vital Signs: 16:50 BP 85 / 46; Pulse 98; Resp 16; Temp 97.1; Pulse Ox 100% ; Weight 73.03 kg; Height 5 ft. jh5 0 in. (152.40 cm); Pain 10/10; 16:54 BP 92 / 50; jh5 17:53 BP 105 / 60; Pulse 100; Resp 17; Pulse Ox 100% ; bp 18:52 BP 102 / 60; Pulse 91; Resp 22; Pulse Ox 96% ; bp 19:30 BP 100 / 44; Pulse 93; Resp 26 S; Pulse Ox 100% on R/A; as6 20:51 BP 136 / 60; Pulse 88; Resp 20 S; Pulse Ox 100% on R/A; as6 16:50 Body Mass Index 31.44 (73.03 kg, 152.40 cm) [facility] MDM: 16:55 Patient medically screened. pm1 19:00 ED course: Source for infection is influenza and pyelonephritis. pm1 19:00 ED course: SIRS Criteria: WBC > 12,000 and Heart Rate > 90. pm1 19:00 ED course: Organ Dysfunction criteria: Creatine greater than 2. pm1 19:15 Data reviewed: vital signs. Data interpreted: Pulse oximetry: on room air is 96 %. pm1 Interpretation: normal. Counseling: I had a detailed discussion with the patient and/or guardian regarding: the historical points, exam findings, and any diagnostic results supporting the discharge/admit diagnosis, lab results, radiology results, the need for further work-up and treatment in the hospital. 07/29 16:57 Order name: Type And Screen pm1 07/29 16:57 Order name: CBC with Diff; Complete Time: 20:53 pm1 07/29 16:57 Order name: CMP; Complete Time: 17:59 pm1 07/29 16:57 Order name: Lipase; Complete Time: 17:59 pm1 07/29 16:58 Order name: Flu; Complete Time: 17:59 pm1 07/29 16:58 Order name: COVID-19 SARS RT PCR (Document "Date of Onset" if Symptomatic); Complete pm1 Time: 18:58 07/29 18:23 Order name: Bb Add On kj1 07/29 18:31 Order name: Packed RBC Leukored [facility] 07/29 18:59 Order name: Urine Microscopic Only; Complete Time: 19:44 pm1 07/29 19:00 Order name: Blood Culture Adult (2) pm1 07/29 19:02 Order name: Lactate; Complete Time: 21:22 pm1 07/29 19:20 Order name: Urine Dipstick-Ancillary; Complete Time: 19:24 EDGA 07/29 19:42 Order name: Urine Culture [facility] 07/29 20:51 Order name: Manual Differential; Complete Time: 20:53 EDGA 07/29 16:57 Order name: IV Saline Lock; Complete Time: 17:21 pm1 07/29 16:57 Order name: Labs collected and sent; Complete Time: 17:21 pm1 07/29 18:38 Order name: Abdomen ; Complete Time: 18:58 EDMS 07/29 19:02 Order name: Chest Single View XRAY; Complete Time: 19:44 pm1 07/29 20:55 Order name: Urine --Ancillary (enter results) 2 07/29 21:35 Order name: Urine --Ancillary; Complete Time: 21:35 EDGA 07/29 16:57 Order name: Urine Dipstick-Ancillary (obtain specimen); Complete Time: 19:22 pm1 07/29 16:57 Order name: Urine Test (obtain specimen); Complete Time: 19:22 pm1 Administered Medications: 17:15 Drug: NS 0.9% 1000 ml Route: IV; Rate: 1 bolus; Site: right antecubital; bp 18:47 Follow up: Response: No adverse reaction; IV Status: Completed infusion; IV Intake: db 1000ml 17:15 Drug: Zofran (Ondansetron) 4 mg Route: IVP; Site: right antecubital; bp 22:05 Follow up: Response: No adverse reaction as6 18:48 Drug: Tamiflu (oseltamivir) 75 mg Route: PO; db 22:05 Follow up: Response: No adverse reaction as6 20:04 Drug: LevaQUIN (levofloxacin) 500 mg Volume: 100 ml; Route: IVPB; Infused Over: 60 as6 mins; Site: right antecubital; 22:05 Follow up: Response: No adverse reaction; IV Status: Completed infusion; IV Intake: as6 100ml 20:04 Drug: fentaNYL (PF) 25 mcg Route: IVP; Site: right antecubital; as6 22:04 Follow up: Response: No adverse reaction as6 20:16 Drug: NS 0.9% 1000 ml Route: IV; Rate: 1000 ml; Site: left antecubital; as6 22:04 Follow up: Response: No adverse reaction; IV Status: Completed infusion; IV Intake: as6 1000ml 21:11 Drug: Potassium Effervescent Tablet 50 mEq Route: PO; as6 22:04 Follow up: Response: No adverse reaction as6 21:59 CANCELLED (wrong dosee): Zofran (Ondansetron) 2 mg IVP once; over 2 minutes as6 21:59 Drug: Zofran (Ondansetron) 4 mg Route: IVP; Site: right antecubital; as6 22:04 Follow up: Response: No adverse reaction as6 Disposition Summary: 07/29/22 19:20 Hospitalization Ordered Hospitalization Status: Inpatient Admission pm1 Provider: José Davis pm1 Location: Telemetry/MedSurg (Inpatient) pm1 Condition: Fair pm1 Problem: new pm1 Symptoms: have improved pm1 Bed/Room Type: Standard pm1 Room Assignment: 211(07/29/22 20:25) cg Diagnosis - Pyelonephritis acute pm1 - Anemia, unspecified pm1 - Influenza due to identified novel influenza A virus pm1 - Severe sepsis without septic shock pm1 Forms: - Medication Reconciliation Form pm1 - SBAR form pm1 Addendum: 08/02/2022 09:01 Co-signature as Attending Physician, Willis Otero MD. r n Signatures: Dispatcher [employer] EDMS Willis Otero MD MD rn Roberto Harper, PROMOTION MANAGER-C PROMOTION MANAGER-Cla1 Marychuy Bourgeois, RN RN cg Ricardo Ferraro, BATTERY TESTER AND REPAIRER BATTERY TESTER AND REPAIRER pm1 Renny Rasheed RN STEFAN bp Linda Spangler RN RN jh5 Jonathon Marino RN RN as6 Deirdre Dugan, RN RN db Corrections: (The following items were deleted from the chart) 07/29 18:38 16:58 Abdomen Pelvis W Con+CT.RAD.BRZ ordered. EDGA EDGA 20:25 19:20 pm1 21:59 21:57 Zofran (Ondansetron) 2 mg IVP once; over 2 minutes ordered. as6 as6
--- NOTE | 2022-07-29 19:20 | ER ---
Nurse's Notes [facility] Name: Abida Shoemaker Age: 46 yrs Sex: Female : 1975 Arrival Date: 07/29/2022 Time: 16:33 Bed 4 Private MD: Diagnosis: Pyelonephritis acute;Anemia, unspecified;Influenza due to identified novel influenza A virus;Severe sepsis without septic shock Presentation: 07/29 16:50 Chief complaint: Patient states: kidney pain, I feel very sick and weak and I have a jh5 history of kidney injury; back pain and lower abdominal pain. Coronavirus screen: Vaccine status: Patient reports receiving the 2nd dose of the covid vaccine. Client denies travel out of the [place] in the last 14 days. Ebola Screen: Patient negative for fever greater than or equal to 101.5 degrees Fahrenheit, and additional compatible Ebola Virus Disease symptoms Patient denies exposure to infectious person. Patient denies travel to an Ebola-affected area in the 21 days before illness onset. Initial Sepsis Screen: Does the patient meet any 2 criteria? No. Patient's initial sepsis screen is negative. Does the patient have a suspected source of infection? No. Patient's initial sepsis screen is negative. Risk Assessment: Do you want to hurt yourself or someone else? Patient reports no desire to harm self or others. 16:50 Method Of Arrival: Wheelchair jh5 16:50 Acuity: NEGRO 3 jh5 19:31 Onset of symptoms is unknown. as6 Triage Assessment: 16:52 General: Appears in no apparent distress. uncomfortable, Behavior is calm, cooperative, jh5 appropriate for age. Pain: Complains of pain in back and abdomen. GI: Reports diarrhea, nausea, vomiting. MANAGER CLINICAL: 16:52 LMP 06/20/2022 5 Historical: - Allergies: 16:52 Demerol; 5 16:52 PENICILLINS; 5 - PMHx: 16:52 Hypertension; 5 - Immunization history:: Adult Immunizations up to date. - Social history:: Smoking status: Patient denies any tobacco usage or history of. Screenin:22 Abuse screen: Denies threats or abuse. Denies injuries from another. Nutritional db screening: No deficits noted. Tuberculosis screening: No symptoms or risk factors identified. Fall Risk None identified. No fall in past 12 months (0 pts). No secondary diagnosis (0 pts). IV access (20 points). Ambulatory Aid- None/Bed Rest/Nurse Assist (0 pts). Gait- Normal/Bed Rest/Wheelchair (0 pts) Mental Status- Oriented to own ability (0 pts). Total Wagner Fall Scale indicates No Risk (0-24 pts). Assessment: 17:07 General: Appears distressed, Behavior is cooperative, appropriate for age, anxious. bp Pain: Complains of pain in back. Neuro: No deficits noted. Cardiovascular: Rhythm is sinus rhythm. Respiratory: No deficits noted. GI: Bowel sounds present X 4 quads. Abd is soft X 4 quads. : No deficits noted. EENT: No deficits noted. Derm: Skin is pale. Musculoskeletal: No deficits noted. 17:53 Reassessment: No changes from previously documented assessment. Patient and/or family bp updated on plan of care and expected duration. Pain level reassessed. 18:50 Reassessment: TRANSFUSE ORDER PLACED, CONSENT SIGNED AND WITNESSED. bp 19:31 General: Reports fatigue for. Pain: Complains of pain in abdomen. Derm: Skin is dusky, as6 pale. 20:59 General: attempted to call report . as6 Vital Signs: 16:50 BP 85 / 46; Pulse 98; Resp 16; Temp 97.1; Pulse Ox 100% ; Weight 73.03 kg; Height 5 ft. jh5 0 in. (152.40 cm); Pain 10/10; 16:54 BP 92 / 50; jh5 17:53 BP 105 / 60; Pulse 100; Resp 17; Pulse Ox 100% ; bp 18:52 BP 102 / 60; Pulse 91; Resp 22; Pulse Ox 96% ; bp 19:30 BP 100 / 44; Pulse 93; Resp 26 S; Pulse Ox 100% on R/A; as6 20:51 BP 136 / 60; Pulse 88; Resp 20 S; Pulse Ox 100% on R/A; as6 16:50 Body Mass Index 31.44 (73.03 kg, 152.40 cm) 5 ED Course: 16:33 Patient arrived in ED. mr 16:43 Ricardo Ferraro NP is PHCP. pm1 16:43 Willis Otero MD is Attending Physician. pm1 16:52 Triage completed. 5 16:52 Arm band placed on right wrist. jh5 17:05 Renny Rasheed, RN is Primary Nurse. bp 17:15 Inserted saline lock: 20 gauge in right antecubital area, using aseptic technique. db Blood collected. 17:54 Patient has correct armband on for positive identification. Bed in low position. Call bp light in reach. Side rails up X2. 18:38 Abdomen In Process Unspecified. EDMS 19:19 José Davis MD is Hospitalizing Provider. pm1 19:27 Chest Single View XRAY In Process Unspecified. EDMS 20:06 Inserted saline lock: 18 gauge in left antecubital area, using aseptic technique. Blood as6 collected. 22:07 No provider procedures requiring assistance completed. Patient admitted, IV remains in as6 place. Administered Medications: 17:15 Drug: NS 0.9% 1000 ml Route: IV; Rate: 1 bolus; Site: right antecubital; bp 18:47 Follow up: Response: No adverse reaction; IV Status: Completed infusion; IV Intake: db 1000ml 17:15 Drug: Zofran (Ondansetron) 4 mg Route: IVP; Site: right antecubital; bp 22:05 Follow up: Response: No adverse reaction as6 18:48 Drug: Tamiflu (oseltamivir) 75 mg Route: PO; db 22:05 Follow up: Response: No adverse reaction as6 20:04 Drug: LevaQUIN (levofloxacin) 500 mg Volume: 100 ml; Route: IVPB; Infused Over: 60 as6 mins; Site: right antecubital; 22:05 Follow up: Response: No adverse reaction; IV Status: Completed infusion; IV Intake: as6 100ml 20:04 Drug: fentaNYL (PF) 25 mcg Route: IVP; Site: right antecubital; as6 22:04 Follow up: Response: No adverse reaction as6 20:16 Drug: NS 0.9% 1000 ml Route: IV; Rate: 1000 ml; Site: left antecubital; as6 22:04 Follow up: Response: No adverse reaction; IV Status: Completed infusion; IV Intake: as6 1000ml 21:11 Drug: Potassium Effervescent Tablet 50 mEq Route: PO; as6 22:04 Follow up: Response: No adverse reaction as6 21:59 CANCELLED (wrong dosee): Zofran (Ondansetron) 2 mg IVP once; over 2 minutes as6 21:59 Drug: Zofran (Ondansetron) 4 mg Route: IVP; Site: right antecubital; as6 22:04 Follow up: Response: No adverse reaction as6 Medication: 22:08 VIS not applicable for this client. as6 Intake: 18:47 IV: 1000ml; Total: 1000ml. db 22:04 IV: 1000ml; Total: 2000ml. as6 22:05 IV: 100ml; Total: 2100ml. as6 Outcome: 19:20 Decision to Hospitalize by Provider. pm1 22:07 Admitted to Med/surg accompanied by nurse, family with patient, via wheelchair, room as6 211, with chart, Report called to Astrid AVILES 22:07 Condition: stable 22:07 Instructed on the need for admit. 22:13 Patient left the ED. as6 Signatures: Dispatcher [employer] MILDRED JimLyndsey mr FerraroRicardo, EXERCISER EXERCISER pm1 Renny Rasheed, RN RN bp Linda Spangler, STEFAN RN jh5 Jonathon Marino, STEFAN RN as6 Deirdre Dugan, STEFAN RN db
[2022-07-29] MEDS ORDERED: Levofloxacin500mg IV 500 MG/100 ML BAG IV ONE (19:23)
[2022-07-29 19:36] LABS: Urine Bacteria 20-50 /HPF (<20); Urine Crystals Unidentified Few /HPF (None Seen); Urine Mucus 2+ /HPF (None Seen); Urine RBC >50 /HPF (None Seen); Urine WBC Clump Many /HPF (None Seen)
--- NOTE | 2022-07-29 19:42 | RAD REPORT ---
EXAM DESCRIPTION: RAD - Chest Single View - 07/29/2022 7:25 pm CLINICAL HISTORY: FEVER COMPARISON: CHEST SINGLE VIEW dated 10/12/2015 FINDINGS: Lines: None. Lungs: No evidence of edema or pneumonia. Pleural: No significant pleural effusions or pneumothorax. Cardiac: The heart size is within normal limits. Mediastinum: Within normal limits. Bones: No acute fractures. Other: None IMPRESSION: No acute cardiopulmonary disease.
[2022-07-29] MEDS ORDERED: FENTANYL CITR 100 MCG/2 ML ONE (19:59)
--- NOTE | 2022-07-29 20:48 | P.HP ---
Certification for Inpatient Patient admitted to: Inpatient With expected LOS: >2 Midnights Patient will require the following post-hospital care: None Practitioner: I am a practitioner with admitting privileges, knowledge of patient current condition, hospital course, and medical plan of care. Services: Services provided to patient in accordance with Admission requirements found in Title 42 Section 412.3 of the Code of Federal Regulations <Roberto Harper - Last Filed: 07/29/22 20:44> Patient History Date of Service: 07/29/22 Reason for admission: Severe sepsis, pyelonephritis, anemia, influenza A History of Present Illness: 46-year-old female with history of iron deficiency anemia secondary to menorrhagia, hypertension presents the emergency department for abdominal pain, left flank pain, malaise. She reports she began feeling unwell on 07/25/2022. She was evaluated in the emergency department her labs were significant for white blood cell count of 23.5 hemoglobin 6.5 hematocrit 22.8 MCV 61.6 sodium 136 potassium 3.0 bicarb 20 creatinine 2.24 GFR 27 BUN 26 urine microscopic with 20-50 bacteria many white blood cell clumps greater than 50 white blood cell greater than 50 red blood cell 3+ leuk esterase patient also tested positive for influenza A CT without contrast was performed which revealed mild left-sided hydronephrosis in Daniel nephric stranding which could represent either pyelonephritis or recently passed stone. No renal or ureteral calculi identified. Patient meets criteria for severe sepsis at this time given presence of SIRS criteria including leukocytosis tachycardia tachypnea with source of infection with UTI/pyelonephritis as well as organ dysfunction with acute renal failure. Patient did receive 30 cc/kg IV fluid bolus in the emergency department she was started on IV antibiotics with Levaquin lactate is pending. Will admit for further evaluation and management. 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, lives at home with family - Family History Father -: Heart disease, Hypertension, Lung disease, GI disease, Cancer, Liver disease Mother -: Heart disease, Hypertension, Diabetes, Stroke - Social History Smoking Status: Never smoker Alcohol use: Yes CD- Drugs: No Caffeine use: Yes Place of Residence: Home <Roberto Harper - Last Filed: 07/29/22 20:44> Date of Service: 07/30/22 <José Davis - Last Filed: 07/30/22 19:47> Allergies meperidine HCl [From Demerol] Allergy (Verified 10/06/19 01:19) Unknown PENICILLINS Allergy (Uncoded 10/06/19 01:19) Rash Home Medications: NK [No Home Meds] 07/29/22 Review of Systems 10-point ROS is otherwise unremarkable General: Chills, Weakness, Malaise Gastrointestinal: Vomiting, Abdominal Pain <Roberto Harper - Last Filed: 07/29/22 20:44> Physical Examination - Physical Exam General: Alert, In no apparent distress, Oriented x3 HEENT: Atraumatic, PERRLA, Mucous membr. moist/pink, EOMI, Sclerae nonicteric Neck: Supple, 2+ carotid pulse no bruit, No LAD, Without JVD or thyroid abnormality Respiratory: Clear to auscultation bilaterally, Normal air movement Cardiovascular: Regular rate/rhythm, Normal S1 S2 Capillary refill: <2 Seconds Gastrointestinal: Normal bowel sounds, No masses, No rebound, Tenderness (Positive for CVA tenderness) Musculoskeletal: No tenderness Integumentary: No rashes Neurological: Normal speech, Normal strength at 5/5 x4 extr, Normal tone, Normal affect - Studies Laboratory Data (last 24 hrs) 07/29/22 17:15: Sodium 136, Potassium 3.0 L, BUN 26 H, Creatinine 2.24 H, Glucose 82, Total Bilirubin 0.5, AST 19, ALT 23, Alkaline Phosphatase 148 H, Lipase 15 L 07/29/22 17:15: WBC 23.50 H*, Hgb 6.4 L*, Hct 22.8 L, Plt Count 271 Microbiology Data (last 24 hrs): 07/29/22 17:30 Nasopharnyx Influenza Type A Antigen Screen - Final 07/29/22 17:30 Nasopharnyx Influenza Type B Antigen Screen - Final <Roberto Harper - Last Filed: 07/29/22 20:44> - Studies Laboratory Data (last 24 hrs) 07/29/22 17:15: WBC 23.50 H*, Hgb 6.4 L*, Hct 22.8 L, Plt Count 271 Microbiology Data (last 24 hrs): 07/29/22 17:30 Nasopharnyx Influenza Type A Antigen Screen - Final 07/29/22 17:30 Nasopharnyx Influenza Type B Antigen Screen - Final <José Davis - Last Filed: 07/30/22 19:47> Assessment and Plan - Plan Assessment: Severe sepsis secondary to left-sided pyelonephritis/complicated UTI Acute renal failure secondary to severe sepsis Influenza A Microcytic anemia/KONRAD History of hypertension Plan: Severe sepsis secondary to left-sided pyelonephritis/complicated UTI: SIRS criteria present including leukocytosis, tachycardia, tachypnea source of infection with complicated UTI/pyelonephritis. Lactate currently pending meets criteria for severe sepsis given organ dysfunction with acute renal failure creatinine greater than 2. Blood cultures obtained antibiotics givenLevaquin. Continue aggressive IV fluids she did receive 30 cc/kg IV fluid bolus in the emergency department. Follow blood/urine culture. Acute renal failure secondary to severe sepsis: Aggressive IV fluids, nephrology consult and renal ultrasound ordered. Influenza A: Renally dosed Tamiflu ordered. Microcytic anemia/KONRAD: Patient receiving 1 unit PRBC now we will repeat H&H are posttransfusion, ID labs ordered. Patient reports very heavy menstrual cycles lasting approximately 3 weeks out of the month, has been told she needs a hysterectomy in the past but has not yet had this procedure. We will give patient p.o. iron as well. History of hypertension: Hold oral antihypertensives in the setting of sepsis. DVT PPX: Heparin Code status: Full Discharge Plan: Home Plan to discharge in: 72 Hours - Advance Directives Does patient have a Living Will: No Does patient have a Durable POA for Healthcare: No - Code Status/Comfort Care Code Status Assessed: Yes (Full code) Critical Care: No Time Spent Managing Pts Care (In Minutes): 70 <Roberto Harper - Last Filed: 07/29/22 20:44> Physician Review: Patient Assessed, Agree with Above Assessment and Plan <José Davis - Last Filed: 07/30/22 19:47>
[2022-07-29 20:51] LABS: Anisocytosis 1+; Blood Morphology Comment NOTED (NOT SEEN); Hypochromasia 2+; Platelet Estimate ADEQ; Polychromasia SLIGHT
[2022-07-29] MEDS ORDERED: POTASSIUM 25 MEQ EFFERV TAB ONE (21:06)
[2022-07-29 21:35] LABS: Urine Specific Gravity/Preg 1.025 (1.005-1.030)
[2022-07-29] MEDS ORDERED: ONDANSETRON 4 MG/2 ML VIAL IV PRN (21:36)
[2022-07-29] MEDS: ACETAMINOPHEN 500 MG TAB PO PRN (22:40)
[2022-07-29] MEDS: HEPARIN 5000 UNIT/ML 1 ML VIAL SQ SCH (22:41)
[2022-07-29 23:17] VITALS: BMI 34.2
[2022-07-29] MEDS: MORPHINE 2 MG/ML SYR IV PRN (23:27)
[2022-07-29] MEDS: Ringers Lactate 1,000 ML IV SCH (23:50)
[2022-07-30] MEDS ORDERED: NA CHLORIDE 0.9% 250 ML ONE ×2 (00:10→09:46)
[2022-07-30] MEDS: Ringers Lactate 1,000 ML IV SCH ×3 (04:16→20:22)
[2022-07-30 07:13] LABS: Absolute Lymphocytes (CBC) 0.5 K/uL (0.7-4.9); MCV 63.5 fL (80-100); MPV 8.7 fL (7.6-11.3); RBC Red Blood Cell Count 3.71 M/uL (3.86-4.86)
[2022-07-30 07:29] LABS: Albumin 1.9 g/dL (3.4-5.0); Bilirubin Total 0.9 mg/dL (0.2-1.0); Ferritin 60.8 ng/mL (8-388); Potassium 3.3 mmol/L (3.5-5.1); Protein, Total 5.9 g/dL (6.4-8.2); Uric Acid 3.9 mg/dL (2.6-6.0)
[2022-07-30 07:32] LABS: Hematocrit 22.8 % (36.0-45.0)
[2022-07-30] MEDS: MORPHINE 2 MG/ML SYR IV PRN ×3 (08:13→18:19)
[2022-07-30] MEDS: HEPARIN 5000 UNIT/ML 1 ML VIAL SQ SCH ×2 (08:14→20:22)
[2022-07-30] MEDS: FE SULF/FA/VIT B COMP & C TAB PO SCH (08:14)
[2022-07-30 08:20] LABS: Anisocytosis 1+; Blood Morphology Comment NOTED (NOT SEEN); Hypochromasia 1+; Platelet Estimate ADEQ; Platelets, Giant OCCASSINOAL
[2022-07-30 08:21] LABS: Ovalocytes 1+; Poikilocytosis 1+
--- NOTE | 2022-07-30 08:35 | RAD REPORT ---
EXAM DESCRIPTION: US - Renal Ultrasound-Complete - 07/29/2022 11:34 pm CLINICAL HISTORY: arf Flank pain COMPARISON: No comparisonsNo comparisons FINDINGS: Both kidneys are normal in size, shape and echotexture. The right kidney measures 10.6 x 5.6 x 5.2 cm. No hydronephrosis, focal mass or perinephric fluid. The left kidney measures 11.3 x 6.7 x 5.8 cm. No hydronephrosis, focal mass or perinephric fluid. The urinary bladder is incompletely distended without gross abnormality seen. IMPRESSION: Unremarkable renal sonogram.
[2022-07-30] MEDS ORDERED: Levofloxacin 750mg IV 750 MG/150 ML BAG IV SCH (09:00)
[2022-07-30] MEDS ORDERED: POTASSIUM CL SA 10 MEQ TAB PO ONE (12:00)
[2022-07-30 14:24] LABS: Hematocrit 24.8 % (36.0-45.0)
[2022-07-30] MEDS: ACETAMINOPHEN 500 MG TAB PO PRN (16:04)
[2022-07-30] MEDS: OSELTAMIVIR 30 MG CAP PO SCH (16:05)
--- NOTE | 2022-07-30 19:02 | P.CNS ---
Date of Consult: 07/30/22 Reason for Consult: ALIA Requesting Physician: José Davis Chief Complaint: Severe sepsis, pyelonephritis, anemia, influenza A History of Present Illness: 46F w/ PMHx of Htn & KONRAD 2/2 menorrhagia, who p/w L flank pain & malaise, found to have sepsis. CT without contrast was performed which revealed mild left- sided hydronephrosis w/ perinephric stranding. Received IVF & abx for L pyelonephritis. Referred to Nephrology. Has ALIA. Baseline SCr 0.6-0.8 as of Sep 2019. SCr 2.2 on adm, improved to 2.0. Urinalysis +proteinuria/hematuria/pyuria. Urine chem + UPCR pending. 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, lives at home with family - Family History Father Medical History: Heart disease, Hypertension, Lung disease, GI disease, Cancer, Liver disease Mother Medical History: Heart disease, Hypertension, Diabetes, Stroke - Social History Alcohol use: Yes CD- Drugs: No Caffeine use: Yes Place of Residence: Home Review of Systems General: Weakness, Malaise Eyes: Unremarkable ENT: Unremarkable Respiratory: Unremarkable Cardiovascular: Unremarkable Gastrointestinal: Abdominal Pain Genitourinary: Other (L flank pain) Musculoskeletal: Unremarkable Integumentary: Unremarkable Neurological: Unremarkable Lymphatics: Unremarkable Physical Examination Temp Pulse Resp BP Pulse Ox 99.9 F 98 H 18 162/73 H 97 07/30/22 16:00 07/30/22 16:00 07/30/22 18:19 07/30/22 16:00 07/30/22 18:19 General: In no apparent distress HEENT: Atraumatic, Normocephalic Neck: Supple, JVD not distended Respiratory: Clear to auscultation bilaterally Cardiovascular: No rubs, No murmurs Gastrointestinal: Soft and benign, No guarding Musculoskeletal: No clubbing Integumentary: No warmth Neurological: Normal tone Urinary: Other (No bladder distention) External genitalia: Deferred Rectal: Deferred Laboratory Data (last 24 hrs) 07/29/22 17:15: WBC 23.50 H*, Hgb 6.4 L*, Hct 22.8 L, Plt Count 271 Conclusions/Impression: # ALIA 2/2 prerenal state +/- ATN/sepsis Baseline SCr 0.6-0.8 as of Sep 2019 SCr 2.2 on adm, improved to 2.0 Urinalysis +proteinuria/hematuria/pyuria F/u random urine chem, UPCR, CPK Cont IVF [place] po fluid intake # Severe sepsis 2/[address] without contrast was performed which revealed mild left-sided hydronephrosis w/ perinephric stranding IV abx, f/u cultures # Acute Blood Loss Anemia secondary to Menorrhagia S/p pRBC transfusion Outpatient Social Service Assistant follow-up # Flu A infection Oseltamivir # Htn Start Amlodipine 5 mg po daily
--- NOTE | 2022-07-30 19:52 | P.PN ---
Subjective Date of Service: 07/30/22 Chief Complaint: Severe sepsis, pyelonephritis, anemia, influenza A No acute events since admissions. She reports chills and malaise this morning. She states that her pain is currently well-controlled with her current pain regimen. Review of Systems 10-point ROS is otherwise unremarkable General: Chills, Weakness, Malaise Gastrointestinal: Nausea, Abdominal Pain Musculoskeletal: Back Pain Physical Examination - Vital Signs Temperature: 99.9 F Blood Pressure: 162/73 Pulse: 98 Respirations: 18 Pulse Ox (%): 97 - Physical Exam General: Alert, In no apparent distress, Oriented x3 HEENT: Atraumatic, PERRLA, Mucous membr. moist/pink, EOMI, Sclerae nonicteric Neck: Supple, JVD not distended Respiratory: Clear to auscultation bilaterally, Normal air movement Cardiovascular: No edema, Regular rate/rhythm, Normal S1 S2, No gallops, No rubs, No murmurs Gastrointestinal: Normal bowel sounds, Soft and benign, Non-distended, No rebound, No guarding, Tenderness (left-sided) Musculoskeletal: No clubbing, Tenderness (left flank) Integumentary: No rashes Neurological: Normal speech, Cranial nerves 3-12 intact, Normal affect - Studies Laboratory Data (last 24 hrs) 07/29/22 17:15: WBC 23.50 H*, Hgb 6.4 L*, Hct 22.8 L, Plt Count 271 Microbiology Data (last 24 hrs): 07/29/22 17:30 Nasopharnyx Influenza Type A Antigen Screen - Final 07/29/22 17:30 Nasopharnyx Influenza Type B Antigen Screen - Final Assessment And Plan - Plan # Severe Sepsis likely secondary to Left-Sided Pyelonephritis # Mild Left-Sided Hydronephrosis She met sepsis criteria based on HR > 90 bpm, RR > 20 breaths/min, and WBC > 12,000 and the suspected source is urinary. Severe sepsis is suspected due to concern for tissue hypoperfusion/organ dysfunction based on creatinine >2.0 mg/dL (without ESRD) and lactic acid > 2 mmol/L. - Sepsis order set was initiated - CT abdomen/pelvis = "Mild left-sided hydronephrosis and perinephric stranding which could represent either pyelonephritis or recently passed stone. No renal or ureteral calculi identified." - Lactate was 1.8 - Blood cultures drawn before antibiotics were given - Broad spectrum antibiotics started: Levofloxacin - In regards to fluids: - 30 mL/kg of IV fluids was not administered given SBP > 90, MAP > 65, lactic acid < 4 # KDIGO Stage II Acute Kidney Injury - Nephrology consulted - recommendations appreciated - Creatinine = 2.24 -> 2.03 (baseline creatinine ~0.8) - Urinalysis = trace ketones, 2+ blood, 3+ leukocyte esterase, >50 RBCs, >50 WBCs, 2050 bacteria, 3+ protein - Renal ultrasound = "Unremarkable renal sonogram." - Monitor creatinine and urine output - Renally dose medications # Acute Blood Loss Anemia secondary to Menorrhagia - Hgb 6.4 -> 6.7 - S/P 1 unit pRBCs, will order additional unit of pRBCs - Serial H&H - transfuse for Hgb < 7.0 - Will require outpatient Insulation Worker Furnace Installer follow-up # Influenza A Infection - Chest x-ray = "No acute cardiopulmonary disease." - Oseltamivir started with renal dosing # Hypertension - Hold home medications due to concern for severe sepsis José Davis M.D.
[2022-07-30 22:12] LABS: Hematocrit 24.3 % (36.0-45.0)
[2022-07-31] MEDS: Ringers Lactate 1,000 ML IV SCH ×4 (02:34→21:33)
[2022-07-31] MEDS: MORPHINE 2 MG/ML SYR IV PRN ×4 (02:35→15:22)
[2022-07-31] MEDS: AMLODIPINE 5 MG TAB PO SCH ×2 (06:40→10:32)
[2022-07-31] MEDS: FE SULF/FA/VIT B COMP & C TAB PO SCH (10:30)
[2022-07-31] MEDS ORDERED: POTASSIUM CL 40 MEQ in NA CHLORIDE 0.9% 500 ML IV SCH (11:00)
[2022-07-31] MEDS: HEPARIN 5000 UNIT/ML 1 ML VIAL SQ SCH ×2 (11:38→21:34)
[2022-07-31] MEDS ORDERED: HYDRALAZINE HCL 20 MG/ML VIAL IV PRN (12:23)
[2022-07-31] MEDS: ACETAMINOPHEN 500 MG TAB PO PRN (13:21)
--- NOTE | 2022-07-31 14:39 | PN ---
Date of Progress Note: 07/31/2022 Subjective: Patient was admitted with pyelonephritis and flu. Patient had acute kidney injury and e levation in the blood pressure. Patient was started on hydration. Kidney function has started to im prove. Patient had severe anemia with thrombocytopenia. Physical Examination: Vital Signs: When I saw the patient, blood pressure 184/66, pulse of 90, afebrile. Chest: Clear to auscultation. Heart: S1, S2 regular. Abdomen: Soft, nontender. Extremities: Trace edema. Neurologic: Alert. No focality. Laboratory Data: WBC 15.3, H and H 7.4/24.3. Sodium 138, potassium 3.3, bicarb 21, BUN 33, creatini ne 2. GFR of 30. Uric acid 3.9. Calcium 9.7. Iron saturation 9.5, ferritin of 60. Albumin 1.9. C orrected calcium is 11.3. Urinalysis: Positive for infection, +3 protein. Current Medications: The patient is on include: 1.Tamiflu. 2.Levaquin. 3.Iron. 4.Amlodipine. 5.LR. 6.KCl. Assessment And Plan: 1.Acute kidney injury, normal size kidney. Obstructive uropathy has been ruled out. .02/27.3 prot einuric. Still quantification of the proteinuria not back, mostly secondary to prerenal/toxic acute tubular necrosis, superimposed with dehydration secondary to hypercalcemia. a.I am going to continue aggressive hydration for the patient and we will monitor the patient given the presence of no significant elevation in the uric acid, which does not support severe dehydration and the presence of the thrombocytopenia and hypercalcemia to rule out any light chain disease with t he presence of the anemia. I am going to go ahead and send for full workup with serum protein electr ophoresis and I am going to send for PTH and vitamin D and we will follow up. Patient admits that zainab pal has been taking Advil 2-3 tablets daily for the last few days, so we will discontinue that and we w ill monitor the patient. 2.Hypertension, not controlled. I am going to go ahead and start the patient on increasing her amlo dipine to 10 mg and start the patient on beta-katelyn for better control of her blood pressure. 3.Hypercalcemia. We will send for the workup. Continue hydration. 4.Hypokalemia. We will supplement cautiously given the current kidney function. We will check for magnesium. 5.Iron deficiency anemia, started on iron supplement. We will monitor with the presence of hypercal cemia and kidney injury to rule out any light chain disease. We will send for the workup. 6.Flu pneumonia. Continue current antibiotic dose appropriate. 7.Urinary tract infection. Patient was started on Levaquin. Culture is still pending. We will fol low up. 8.Hydronephrosis. Repeated ultrasound showed resolving. Obstructive uropathy has been ruled out. We will continue to monitor the patient. ALETA/VALARIE Voice ID: [id number] Report ID: [id number]
--- NOTE | 2022-07-31 16:39 | P.PN ---
Subjective Date of Service: 07/31/22 Chief Complaint: Severe sepsis, pyelonephritis, anemia, influenza A No acute events overnight. She reports that her symptoms are unchanged compared to yesterday. She endorses generalized malaise and fatigue, with left-sided flank pain. She reports that her menorrhagia has improved. Review of Systems 10-point ROS is otherwise unremarkable General: Weakness, Malaise Physical Examination - Vital Signs Temperature: 100.1 F Blood Pressure: 163/65 Pulse: 89 Respirations: 18 Pulse Ox (%): 96 Assessment And Plan - Plan - Physical Exam General: Alert, In no apparent distress, Oriented x3 HEENT: Atraumatic, PERRLA, Mucous membr. moist/pink, EOMI, Sclerae nonicteric Neck: Supple, JVD not distended Respiratory: Clear to auscultation bilaterally, Normal air movement Cardiovascular: No edema, Regular rate/rhythm, Normal S1 S2, No gallops, No rubs, No murmurs Gastrointestinal: Normal bowel sounds, Soft and benign, Non-distended, No rebound, No guarding, Tenderness (left-sided) Musculoskeletal: No clubbing, Tenderness (left flank) Integumentary: No rashes Neurological: Normal speech, Cranial nerves 3-12 intact, Normal affect # Severe Sepsis likely secondary to Left-Sided Pyelonephritis # Mild Left-Sided Hydronephrosis She met sepsis criteria based on HR > 90 bpm, RR > 20 breaths/min, and WBC > 12,000 and the suspected source is urinary. Severe sepsis is suspected due to concern for tissue hypoperfusion/organ dysfunction based on creatinine >2.0 mg/dL (without ESRD) and lactic acid > 2 mmol/L. - Sepsis order set was initiated - CT abdomen/pelvis = "Mild left-sided hydronephrosis and perinephric stranding which could represent either pyelonephritis or recently passed stone. No renal or ureteral calculi identified." - Lactate was 1.8 - Blood cultures drawn before antibiotics were given - Broad spectrum antibiotics started: Levofloxacin - In regards to fluids: - 30 mL/kg of IV fluids was not administered given SBP > 90, MAP > 65, lactic acid < 4 # KDIGO Stage II Acute Kidney Injury - Nephrology consulted - recommendations appreciated - Creatinine = 2.24 -> 2.03 (baseline creatinine ~0.8) - Urinalysis = trace ketones, 2+ blood, 3+ leukocyte esterase, >50 RBCs, >50 WBCs, 2050 bacteria, 3+ protein - Renal ultrasound = "Unremarkable renal sonogram." - Monitor creatinine and urine output - Renally dose medications # Acute Blood Loss Anemia secondary to Menorrhagia - Hgb 6.4 -> 6.7 -> 7.4 -> 7.4 - S/P 2 unit pRBCs thus far - Serial H&H - transfuse for Hgb < 7.0 - 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
[2022-07-31] MEDS: OSELTAMIVIR 30 MG CAP PO SCH (17:55)
[2022-07-31 20:53] LABS: Absolute Lymphocytes (CBC) 0.8 K/uL (0.7-4.9); Hematocrit 26.3 % (36.0-45.0); Lymphocytes % 4.9 % (15.3-44.8); MCV 64.9 fL (80-100); MPV 8.7 fL (7.6-11.3); RBC Red Blood Cell Count 4.04 M/uL (3.86-4.86)
[2022-07-31 21:39] LABS: Albumin 1.7 g/dL (3.4-5.0); Bilirubin Total 0.6 mg/dL (0.2-1.0); Potassium 3.3 mmol/L (3.5-5.1)
[2022-08-01] MEDS: ACETAMINOPHEN 500 MG TAB PO PRN ×2 (00:38→12:45)
[2022-08-01] MEDS: Ringers Lactate 1,000 ML IV SCH ×4 (02:56→23:00)
[2022-08-01 04:52] LABS: Absolute Lymphocytes (CBC) 0.5 K/uL (0.7-4.9); Hematocrit 25.6 % (36.0-45.0); Lymphocytes % 3.6 % (15.3-44.8); MCV 65.1 fL (80-100); MPV 8.7 fL (7.6-11.3); RBC Red Blood Cell Count 3.93 M/uL (3.86-4.86)
[2022-08-01 05:21] LABS: Albumin 1.7 g/dL (3.4-5.0); Bilirubin Total 0.6 mg/dL (0.2-1.0); Phosphorus 2.9 mg/dL (2.5-4.9); Potassium 3.1 mmol/L (3.5-5.1)
[2022-08-01 05:23] LABS: Thyroid Stimulating Hormone 4.52 uIU/mL (0.360-3.740)
[2022-08-01] MEDS: AMLODIPINE 5 MG TAB PO SCH (08:58)
[2022-08-01] MEDS: FE SULF/FA/VIT B COMP & C TAB PO SCH (08:58)
[2022-08-01] MEDS: HEPARIN 5000 UNIT/ML 1 ML VIAL SQ SCH ×2 (09:56→22:30)
[2022-08-01] MEDS ORDERED: PAMIDRONATE DISOD 30 MG VIAL IV ONE (12:09)
--- NOTE | 2022-08-01 12:31 | P.PN ---
Subjective Date of Service: 08/01/22 Chief Complaint: Severe sepsis, pyelonephritis, anemia, influenza A No acute events overnight. She reports that her flank and abdominal pain have improved. However, she states that her peripheral IV was no longer working, so it was removed. Multiple attempts at re-placing a peripheral IV were made. I spoke with Emergency Department, and they will send a nurse up to the floor soon to place a mid-line. Review of Systems 10-point ROS is otherwise unremarkable Genitourinary: Dysuria (improved) Physical Examination - Vital Signs Temperature: 97.5 F Blood Pressure: 168/76 Pulse: 77 Respirations: 18 Pulse Ox (%): 99 - Studies Microbiology Data (last 24 hrs): 07/29/22 19:17 Clean Catch Urine [place] Count - Final >100,000 CFU/ML. 07/29/22 19:17 Clean Catch Urine - Final Escherichia Coli Assessment And Plan - Plan - Physical Exam General: Alert, In no apparent distress, Oriented x3 HEENT: Atraumatic, PERRLA, Mucous membr. moist/pink, EOMI, Sclerae nonicteric Neck: Supple, JVD not distended Respiratory: Clear to auscultation bilaterally, Normal air movement Cardiovascular: No edema, Regular rate/rhythm, Normal S1 S2, No gallops, No rubs, No murmurs Gastrointestinal: Normal bowel sounds, Soft and benign, Non-distended, No rebound, No guarding, Tenderness (minimal left-sided) Musculoskeletal: No clubbing, minimal left CVA tenderness Integumentary: No rashes Neurological: Normal speech, Cranial nerves 3-12 intact, Normal affect # Severe Sepsis likely secondary to Left-Sided Escherichia Coli Pyelonephritis # Mild Left-Sided Hydronephrosis She met sepsis criteria based on HR > 90 bpm, RR > 20 breaths/min, and WBC > 12,000 and the suspected source is urinary. Severe sepsis is suspected due to concern for tissue hypoperfusion/organ dysfunction based on creatinine >2.0 mg/dL (without ESRD) and lactic acid > 2 mmol/L. - Sepsis order set was initiated - CT abdomen/pelvis = "Mild left-sided hydronephrosis and perinephric stranding which could represent either pyelonephritis or recently passed stone. No renal or ureteral calculi identified." - Lactate was 1.8 - Blood cultures drawn before antibiotics were given - Broad spectrum antibiotics started: Levofloxacin - In regards to fluids: - 30 mL/kg of IV fluids was not administered given SBP > 90, MAP > 65, lactic acid < 4 # KDIGO Stage II Acute Kidney Injury - Nephrology consulted - recommendations appreciated - Creatinine = 2.24 -> 2.03 -> 1.59 -> 1.51 (baseline creatinine ~0.8) - Urinalysis = trace ketones, 2+ blood, 3+ leukocyte esterase, >50 RBCs, >50 WBCs, 2050 bacteria, 3+ protein - Renal ultrasound = "Unremarkable renal sonogram." - Monitor creatinine and urine output - Renally dose medications # Acute Blood Loss Anemia secondary to Menorrhagia - Hgb 6.4 -> 6.7 -> 7.4 -> 7.4 -> 7.9 -> 7.7 - S/P 2 unit pRBCs thus far - Serial H&H - transfuse for Hgb < 7.0 - 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
[2022-08-01] MEDS ORDERED: KCL 20 MEQ/100 mL IVPB 20 MEQ/100 ML BAG IV SCH (13:00)
--- NOTE | 2022-08-01 13:10 | PN ---
Date of Progress Note: 08/01/2022 Subjective: The patient was admitted with flu, acute kidney injury secondary to prerenal. The patie nt was started on hydration. Kidney function has been improved significantly. The patient feeling s lightly better, but is still weak. Physical Examination: Vital Signs: Blood pressure 168/76, pulse of 77, afebrile. The patient had good urine output. Chest: Clear to auscultation. Heart: S1, S2. Regular. Abdomen: Soft, nontender. Extremity: Trace edema. Neurologic: Alert. No focality. Laboratory Data: WBC 14.3, H and H 7.7/25.6, platelet 210. Sodium 138, potassium 3.1, bicarb 21, BU N 32, creatinine 1.5, GFR of 43, calcium 10.7. Albumin 1.7, corrected calcium is 12.7. PTH 94, TSH 4.5. Current Medications: The patient on include; 1.Tamiflu. 2.Levaquin. 3.Amlodipine. 4.Tylenol. 5.LR at 150. Assessment And Plan: 1.Acute kidney injury, normal size kidney 10.6/11.3, proteinuric. We have still pending quantificat ion of the proteinuria with presence of the hematuria and the proteinuria. Our differential was prer enal to rule out any autoimmune disease and to rule out any light chain disease given with hypercalce soto. I am going to continue on hydration. I am going to decrease IV fluid to 100 per hour and we wi ll monitor the patient closely. 2.Hypokalemia. We will supplement. 3.Hypercalcemia. Workup is still pending. Serum protein electrophoresis, currently it is looked to me PTH not appropriately suppressed. I am going to start the patient on pamidronate. We will give single dose and we will follow up the patient. Continue hydration. Followup vitamin D and lab. 4.Hypertension, better controlled. I am going to go ahead and add a low dose of carvedilol for bett er blood pressure control. 5.Flu as by primary. Continue current antibiotic. 6.Urinary tract infection. Continue current antibiotic. Continue Levaquin. We will follow up cult ure. Growing Escherichia coli, sensitive to Levaquin. MA/MODL Voice ID: [id number] Report ID: [id number]
[2022-08-01] MEDS ORDERED: PAMIDRONATE IV ONE (14:00)
[2022-08-01] MEDS ORDERED: NA CHLORIDE 0.9% IV ONE (14:00)
[2022-08-01] MEDS ORDERED: NA CHLORIDE 0.9% IV SCH (16:00)
[2022-08-01] MEDS ORDERED: PAMIDRONATE IV SCH (16:00)
[2022-08-01] MEDS: MORPHINE 2 MG/ML SYR IV PRN ×2 (16:40→22:29)
[2022-08-01] MEDS: OSELTAMIVIR 30 MG CAP PO SCH (17:55)
[2022-08-01] MEDS: carvediloL 3.125 MG TAB PO SCH (17:55)
[2022-08-02 00:41] LABS: UR PROTEIN 34.4 mg/dL (<11.9); Urine Protein/Creatinine Ratio 0.64 ratio (<0.15)
[2022-08-02] MEDS: MORPHINE 2 MG/ML SYR IV PRN (03:57)
[2022-08-02 04:11] LABS: Rheumatoid Factor NEG (NEG)
[2022-08-02 04:24] VITALS: O2SAT 97
[2022-08-02 04:45] LABS: Albumin 1.5 g/dL (3.4-5.0); Phosphorus 2.7 mg/dL (2.5-4.9); Potassium 3.2 mmol/L (3.5-5.1)
[2022-08-02 04:47] LABS: Hematocrit 24.2 % (36.0-45.0); MCV 64.6 fL (80-100); MPV 8.7 fL (7.6-11.3); RBC Red Blood Cell Count 3.75 M/uL (3.86-4.86)
[2022-08-02 05:13] LABS: Anisocytosis 2+; Blood Morphology Comment NOTED (NOT SEEN); Platelet Estimate ADEQ
[2022-08-02] MEDS: Ringers Lactate 1,000 ML IV SCH ×3 (05:24→20:17)
[2022-08-02] MEDS: carvediloL 3.125 MG TAB PO SCH ×2 (06:08→17:15)
[2022-08-02] MEDS: HEPARIN 5000 UNIT/ML 1 ML VIAL SQ SCH ×2 (09:35→20:17)
[2022-08-02] MEDS: AMLODIPINE 5 MG TAB PO SCH (09:35)
[2022-08-02] MEDS: FE SULF/FA/VIT B COMP & C TAB PO SCH (09:35)
[2022-08-02] MEDS ORDERED: Levofloxacin 750mg IV 750 MG/150 ML BAG IV SCH (10:00)
[2022-08-02] MEDS: OSELTAMIVIR 30 MG CAP PO SCH (16:39)
[2022-08-02] MEDS: ACETAMINOPHEN 500 MG TAB PO PRN (17:16)
[2022-08-03] MEDS: Ringers Lactate 1,000 ML IV SCH (05:00)
--- NOTE | 2022-08-03 06:15 | PN ---
Date of Progress Note: 08/02/2022 Chief Complaint: Acute kidney injury. History Of Present Illness: Patient was admitted to the hospital because of fever. She was found to have influenza. The patient was found to have acute kidney injury secondary to prerenal azotemia. The patient is on IV fluids and she resume p.o. intake. Renal function has gradually improved. Elec trolytes are stable, although today potassium was on low side. Patient is on potassium supplementati on. Review of Systems: Denies fever, chills. Physical Examination: Lungs: Clear to auscultation bilaterally. Heart: S1, S2. Abdomen: Soft. Extremities: No edema. Impression And Plan: 1.Acute kidney injury. Renal function has improved gradually. Patient had a kidney ultrasound done and kidney size remains within normal limits. The patient was found to have proteinuria and workup for proteinuria is pending. There is mild proteinuria. Continue to reevaluate proteinuria and check for any evidence of monoclonal gammopathy. 2.Hematuria, microscopic. The patient may need further workup when renal function is at baseline an d patient recovers from flu. Continue to monitor electrolytes. Recently, BUN was 32 and creatinine 1.5. 3.Hypercalcemia. Serum protein electrophoresis was ordered and pending. The patient had a PTH done agent and is appropriately suppressed by hypercalcemia. Continue IV fluids. 4.Hypertension. The patient is on carvedilol. Blood pressure is improving. 5.Urinary tract infection. Patient is taking Levaquin. Urine culture showed Escherichia coli. Adjust antibiotics to sensitivity panel. It showed Levaquin sensit felecia Escherichia coli. EB/MODL Voice ID: [id number] Report ID: [id number]
[2022-08-03 06:32] LABS: Albumin 1.5 g/dL (3.4-5.0); Phosphorus 1.7 mg/dL (2.5-4.9)
[2022-08-03 06:36] LABS: Potassium 2.9 mmol/L (3.5-5.1)
[2022-08-03] MEDS ORDERED: POTASSIUM 25 MEQ EFFERV TAB PO ONE (06:53)
[2022-08-03] MEDS: carvediloL 3.125 MG TAB PO SCH (06:56)
[2022-08-03] MEDS: FE SULF/FA/VIT B COMP & C TAB PO SCH (08:54)
[2022-08-03] MEDS: HEPARIN 5000 UNIT/ML 1 ML VIAL SQ SCH (08:55)
[2022-08-03] MEDS: AMLODIPINE 5 MG TAB PO SCH (08:55)
[2022-08-03] MEDS ORDERED: levoFLOXacin 750 MG TAB PO SCH (09:00)
[2022-08-03 10:07] VITALS: BP 146/75; TEMP 97.3
--- NOTE | 2022-08-03 10:15 | P.PN ---
Date of Service: 08/03/22 Pt adamant about going home today-mother at bedside and asked her about staying one more day. She states she will follow-up with Nephrology. She is uninsured and she may have difficulty. She will need to be seen outpt [facility]. Outpt labs as well.
--- NOTE | 2022-08-03 19:39 | PN ---
Date of Progress Note: 08/03/2022 Subjective: Acute kidney injury. History Of Present Illness: Patient was admitted to the hospital because of fever. She was found to have influenza. She was found to have acute kidney injury with nonoliguric urine output. Acute kidney injury recovered with IV fluids and prerenal azotemia has stabilized. The patient has good p.o. intake. Electrolytes were stable. Potassium although was on low side and patient had replacement treatment with potassium supplement. Review of Systems: Denies fever or chills. Physical Examination: Lungs: Clear to auscultation bilaterally. Heart: S1, S2. Abdomen: Soft. Extremities: No edema. Impression And Plan: 1. Acute kidney injury. Renal function has gradually improved. Kidney ultrasound was done and kidney size remains within normal limits. Patient was found to have proteinuria. Workup was initiated for proteinuria. Proteinuria was of mild degree and blood work was ordered to rule out monoclonal gammopathy of unknown significance. 2. Patient was found to have microscopic hematuria. At this point, patient needs to follow up with Nephrology in outpatient clinic to evaluate. The patient may need referral to Urology for microscopic hematuria. 3. Hypercalcemia. Serum protein electrophoresis was ordered and pending. The patient had a PTH done and was appropriately suppressed by hypercalcemia. Plan is to continue IV fluids. Hypercalcemia likely secondary to multiple causes including hypovolemia. 4. Hypertension. Patient is on carvedilol. 5. Urinary tract infection. Continue Levaquin for Escherichia coli sensitive to Levaquin. MICHAEL/MODL Voice ID: [id number] Report ID: [id number] [id number]
[2022-08-05 10:20] LABS: HIV AG/AB 4TH GEN Non-reactive (Non-reactive)
[2022-08-05 16:07] LABS: Hepatitis C Virus RNA (PCR)log <1.18 log IU/mL
[2022-08-06 12:46] LABS: Vitamin D 1,25-Dihydroxy Total 27 pg/mL (18-72); Vitamin D,1,25-OH2, D2 <8 pg/mL
[2022-08-08 03:00] LABS: HBsAG Nonreactive (Nonreactive)
[2022-08-09 17:05] LABS: Vitamin D 1,25-Dihydroxy Total 21 pg/mL (18-72); Vitamin D,1,25-OH2, D2 <8 pg/mL
== END 2022-08-03 12:09 | disposition home or self-care (01) | DRG 872 ==
LOC: ER 16:26 → ERHOLD 19:40 → 2ND 20:36
PROVIDERS: ADMIT Internal Medicine; ATTEND Hospitalist
PROC: 30233N1 Transfusion of Nonautologous Red Blood Cells into Peripheral Vein, Percutaneous Approach (ICD-10-PCS; principal; 2022-07-30)
DX: A41.51 Sepsis due to Escherichia coli [E. coli] (principal); N10 Acute pyelonephritis; D62 Acute posthemorrhagic anemia; N17.9 Acute kidney failure, unspecified; R65.20 Severe sepsis without septic shock; I10 Essential (primary) hypertension; D50.9 Iron deficiency anemia, unspecified; E83.52 Hypercalcemia; N92.0 Excessive and frequent menstruation with regular cycle; E86.0 Dehydration; D69.6 Thrombocytopenia, unspecified; J10.1 Influenza due to other identified influenza virus with other respiratory manifestations; R31.29 Other microscopic hematuria; Z88.5 Allergy status to narcotic agent; Z88.0 Allergy status to penicillin; Z20.822 Contact with and (suspected) exposure to COVID-19
CPT/HCPCS: 36415; 71045; 74176; 76770; 80053; 80061; 80069; 81003; 81015; 81025; 82306; 82550; 82570; 82652; 82728; 83540; 83605; 83690; 83935; 83970; 84132; 84156; 84165; 84300; 84439; 84443; 84466; 84550; 85014; 85018; 85025; 86021; 86038; 86160; 86225; 86317; 86430; 86704; 86706; 86850; 86900; 86901; 87040; 87077; 87086; 87088; 87186; 87340; 87389; 87522; 87804; 96361; 96365; 96366; 96375; 99285; J0360; J1644; J2270; J2405; J2430; J3010; J3480; J7030; J7040; J7050; J7120; P9016; U0003